=== PATIENT | male | born 1965 | race Caucasian/White ===

== ENCOUNTER → 2021-06-04 | Outpatient (CLI) | payer BC ==
--- NOTE | 2021-06-04 15:37 | XR ---
EXAMINATION TYPE: XR chest 2V DATE OF EXAM: 06/04/2021 COMPARISON: Chest x-ray 06/27/2011 HISTORY: Chronic cough TECHNIQUE: Frontal and lateral views of the chest are obtained. FINDINGS: There is no pleural effusion or pneumothorax seen. Questionable increased attenuation at the posterior costophrenic angle level seen on the lateral exam. The cardiac silhouette size is withi n normal limits, stable. Interstitial changes are present at the lung bases. The osseous structures are intact, there is thoracic spondylosis. IMPRESSION: There may be basilar atelectasis, difficult to exclude pneumonia, possible interstitial changes, consider follow-up, chest CT as indicated.
== END | disposition home or self-care (01) ==
LOC: RADXRMAIN 15:11
PROVIDERS: ATTEND Internal Medicine Geriatric Medicine
DX: R05.3 Chronic cough (principal)
CPT/HCPCS: 71046

== ENCOUNTER → 2021-06-19 | Outpatient (CLI) | payer BC ==
--- NOTE | 2021-06-20 07:37 | CT ---
EXAMINATION TYPE: CT chest w con DATE OF EXAM: 06/19/2021 COMPARISON: Chest x-ray June 04, 2021 HISTORY: chronic cough, h/o covid CT DLP: 729 mGycm. Automated Exposure Control for Dose Reduction was Utilized. TECHNIQUE: CT scan of the thorax is performed following with IV Contrast, patient injected with 80 m L of Isovue 300. FINDINGS: LUNGS: Posterior lower lungs show groundglass opacities and increased intralobular septal markings. T iny peripheral 3 to 4 mm left basilar nodule axial image 49 is noted. No pleural effusion or pneumoth orax is seen. No significant focal consolidation. Tracheobronchial tree is patent. MEDIASTINUM: There are no greater than 1 cm hilar or mediastinal lymph nodes. No significant perica rdial effusion is seen. Heart size upper limits of normal. Some coronary artery calcification is pre sent. OTHER: Multilevel spurring in the spine. IMPRESSION: The lung findings favor mild alveolar and interstitial edema. Correlate for fluid overloa d state and/or mild CHF exacerbation.
== END | disposition home or self-care (01) ==
LOC: RADCTMAIN 16:19
PROVIDERS: ATTEND Internal Medicine Geriatric Medicine
DX: J84.10 Pulmonary fibrosis, unspecified (principal); Z86.16 Personal history of COVID-19
CPT/HCPCS: 71260; Q9967

== ENCOUNTER → 2022-06-27 | Outpatient (CLI) | payer BC ==
--- NOTE | 2022-06-27 11:36 | CT ---
EXAMINATION TYPE: CT ChestAbdPelvis wo/w con CT DLP: 4274 mGycm, Automated exposure control for dose reduction was used. DATE OF EXAM: 06/27/2022 11:16 AM COMPARISON: CT chest 06/19/2021. 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 Patient not having any complaints at time of scan. Technique: Multiple axial images of the chest, abdomen, and pelvis were obtained before and after the intravenous administration of 100 mL Isovue-300. Oral contrast was administered. Two-dimensional cor onal and sagittal reconstructions were obtained. Findings: CHEST: LUNGS/ PLEURA: No pleural effusion or pneumothorax. Similar posterior lower lung groundglass opacitie s with increased interlobular septal markings. Stable tiny 4 mm left lower lobe pulmonary nodule and right midlung 4 mm pulmonary nodule (series 4, image 53 and 42 respectively) . AIRWAY: Patent and unremarkable.. HEART: Size within normal limits. No pericardial effusion. Minimal coronary calcifications. MEDIASTINUM: No gross evidence of adenopathy. VASCULATURE: No aortic aneurysm. MUSCULOSKELETAL: No acute osseous abnormalities. No aggressive osseous lesion. Multilevel Schmorl's n odes. Posterior osteophytes demonstrated at T11-T12 and T9-T10. SOFT TISSUES/LYMPH NODES: Unremarkable. LOWER NECK: No significant findings. ABDOMEN: ABDOMEN LIVER: Diffusely hypoattenuating parenchyma. No focal lesion identified. GALLBLADDER AND BILE DUCTS: Unremarkable. PANCREAS: Unremarkable. SPLEEN: Unremarkable. ADRENAL GLANDS: Unremarkable. KIDNEYS AND URETERS: No evidence of hydronephrosis or renal calculus. The kidneys enhance symmetrical ly without suspicious focal lesion. Contrast is demonstrated within both collecting systems on the de layed phase. PELVIS BLADDER: Unremarkable REPRODUCTIVE: Coarse calcifications of the prostate gland are identified. ABDOMEN & PELVIS STOMACH AND BOWEL: Stomach and duodenum are unremarkable. No focal wall thickening or surrounding inf lammatory changes. Enteric contrast reaches the proximal transverse colon. Moderate amount of stool i s present throughout the colon. No evidence of bowel obstruction. PERITONEUM: No evidence of pneumoperitoneum or free fluid. VASCULATURE: Mild atherosclerotic calcifications are present throughout the abdominal aorta and its b ranches. MUSCULOSKELETAL: No acute osseous abnormalities. No aggressive osseous lesion. Posterior disc osteoph ytes demonstrated at L2-L3, L4-L5, and L5-S1. LYMPH NODES: No gross evidence for lymphadenopathy. SOFT TISSUE/ABDOMINAL WALL: Small fat filled umbilical hernia. IMPRESSION: 1. Unchanged lung findings favored again to represent mild alveolar and interstitial edema. Correlat e for fluid overload state and/or mild CHF exacerbation. 2. Stable pulmonary nodules measuring up to 4 mm. 3. No evidence for pathologically enlarged adenopathy within the chest, abdomen and pelvis.
== END | disposition home or self-care (01) ==
LOC: RADCTMAIN 09:02
PROVIDERS: ATTEND Internal Medicine Geriatric Medicine
DX: R91.8 Other nonspecific abnormal finding of lung field (principal); R77.9 Abnormality of plasma protein, unspecified
CPT/HCPCS: 71270; 74178; Q9967

== ENCOUNTER → 2022-08-01 | Outpatient (CLI) | payer BC ==
--- NOTE | 2022-08-01 11:31 | XR ---
EXAMINATION TYPE: XR chest 2V DATE OF EXAM: 08/01/2022 COMPARISON: 06/04/2021 TECHNIQUE: PA and lateral views submitted. HISTORY: Cough FINDINGS: The lungs are clear and there is no pneumothorax, pleural effusion, or focal pneumonia. Heart size normal and no overt failure. Osseous structures demonstrate hypertrophic and degenerative changes of the spine. IMPRESSION: 1. No acute process.
== END | disposition home or self-care (01) ==
LOC: RADXRMAIN 11:07
PROVIDERS: ATTEND Internal Medicine Geriatric Medicine
DX: R77.9 Abnormality of plasma protein, unspecified (principal); R05.9 Cough, unspecified
CPT/HCPCS: 71046

== ENCOUNTER 2022-09-26 09:33 | Day surgery (SDC) | payer BC ==
[2022-09-25 08:29] VITALS: BMI 34.3
[~2022-09-26 09:33] MED LIST: LACTATED RINGERS 1,000 ML IV SCH
[2022-09-26 10:17] VITALS: TEMP 98.3
[2022-09-26] MEDS ORDERED: PROPOFOL 10 MG/ML 20 ML VIAL IV ONE (10:58)
--- NOTE | 2022-09-26 11:22 | P.PCN ---
Date of Procedure: 09/26/22 Procedure(s) Performed: BRIEF HISTORY: Patient is a 57-year-old pleasant white male scheduled for an elective colonoscopy as a part of screening for colon cancer. PROCEDURE PERFORMED: Colonoscopy with snare polypectomy. PREOPERATIVE DIAGNOSIS: Screening for colon cancer. IV sedation per Anesthesia. PROCEDURE: After informed consent was obtained, the patient, was brought into the endoscopy unit. IV sedation was administered by Anesthesia under continuous monitoring. Digital rectal examination was normal. Initially the Olympus CF-160 flexible video colonoscope was then inserted in the rectum, gradually advanced into the cecum without any difficulty. Careful examination was performed as the scope was gradually being withdrawn. Ileocecal valve and the appendiceal orifice were visualized and appeared normal. Prep was excellent. Mucosa of the cecum appeared normal. In the ascending colon there was a 5 mm polyp that was removed by cold snare polypectomy. Rest of the, ascending colon, transverse colon, appeared normal. In the descending colon at 60 cm from the anal was there was a 1 cm polyp that was removed by hot snare polypectomy. Rest of the descending colon, sigmoid colon, and rectum appeared normal. Retroflexion was performed in the rectum and no lesions were seen. The patient tolerated the procedure well. IMPRESSION: 5 mm ascending colon polyp status post cold snare polypectomy 1 cm descending colon polyp status post hot snare polypectomy RECOMMENDATIONS: Findings of this examination were discussed with the patient as well as his family. He was advised to follow with the biopsy results. If the biopsy results adenoma he can have a repeat colonoscopy in 3 years..
[2022-09-26 12:00] VITALS: BP 110/73; PULSE 77; RESP 16
== END 2022-09-26 12:01 | disposition home or self-care (01) ==
LOC: ORWHC2ENDO 09:33
PROVIDERS: ATTEND Internal Medicine Gastroenterology
DX: Z12.11 Encounter for screening for malignant neoplasm of colon (principal); D12.2 Benign neoplasm of ascending colon; D12.4 Benign neoplasm of descending colon; I10 Essential (primary) hypertension; Z86.16 Personal history of COVID-19; Z79.899 Other long term (current) drug therapy
CPT/HCPCS: 88305; 45385; J2704